=== PATIENT | male | born 1935 | race Caucasian/White ===

== ENCOUNTER 2016-12-20 14:57 | Observation (INO) ==
[2016-12-20] MEDS ORDERED: *HR* Morphine 2 MG/ML SYRINGE IVP PRN (17:57)
[2016-12-20] MEDS ORDERED: Ondansetron 4 MG/2 ML VIAL IVP PRN (17:57)
[2016-12-20] MEDS ORDERED: Naloxone 0.4 MG/ML INJ IVP PRN (17:57)
--- NOTE | 2016-12-20 18:10 | Internal Med History&Physical ---
Date of Encounter: 12/20/16 Time of Encounter: 18:03 Assessment and Plan (1) Chest pain Current visit: Yes Status: Acute as per the history, it sounds more like GERD. he says the protonix made it better however he has significant cardiac risk factors, hence ACS to be r/o. will trend tropx3, EKG has no ischemic changes EKG shows paced rhythm will start on protonix BID and will alos give maalox. will continue his home cardiac meds. on asa and plavix. Qualifiers: Chest pain type: unspecified Qualified Code(s): R07.9 - Chest pain, unspecified (2) CAD (coronary artery disease) Current visit: Yes Status: Acute h/o CABG and stents in 2010. conitnue the plavix, he says he had bleeding that from the dual antiplatelet therapy and thus his aspirin was stopped. will contiue his home cardiac meds. Qualifiers: Coronary Disease-Associated Artery/Lesion type: bypass graft [place] vs. transplanted heart: [place] heart Associated angina: without angina Qualified Code(s): I25.810 - Atherosclerosis of coronary artery bypass graft(s) without angina pectoris (3) HTN (hypertension) Current visit: Yes Status: Acute Qualifiers: Hypertension type: essential hypertension Qualified Code(s): I10 - Essential (primary) hypertension (4) Sleep apnea Current visit: Yes Status: Chronic Qualifiers: Sleep apnea type: unspecified type Qualified Code(s): G47.30 - Sleep apnea , unspecified (5) HLD (hyperlipidemia) Current visit: Yes Status: Chronic Qualifiers: Hyperlipidemia type: unspecified Qualified Code(s): E78.5 - Hyperlipidemia , unspecified Internal Medicine - H&P: HPI Chief complaint: chest pain Admitted From: Home Plans for Post Hospital Care: Home History of present illness: Mr. Hernández is a 81 year old male with PMH of CAD, s/p CABG and stent placement in [facility] in 2010 followed by pacemaker placement now transferred from [facility] for "acid reflux" . Patient states that symptoms are in the mid chest and epigastric area, burning in type, non radiating. denies any nausea or vomiting. He reports he has had them for 6 months. But they have been worse since September since his . He reports he also has heart issues but they too feel like a burning feeling in his chest and sometimes he has difficulty telling the difference between this and the reflux that he has had "for years" In addition he has associated symptoms of shortness of breath and cough which is productive of white mucus. He denies any associated fevers. He has had no hemoptysis. he says that his symptoms are worse when he eats. he says they gave him PPI at [facility] which he says helped. Past Med Surg Social Fam HX - Past Medical History Medical history: arthritis, CHF, coronary artery disease, GERD, hyperlipidemia, hypertension, myocardial infarction Psychiatric history: no psych history - Past Surgical History Surgical History: angioplasty/stent, cholecystectomy, coronary bypass (CABG), orthopedic, other, pacemaker - Social History Smoking Status: Former smoker Alcohol use: rarely Drug use: none - Family History Mother Living Status: Hx Family Cardiac Disorders: Yes (HTN, HLD) Internal Medicine - H&P: Meds Clopidogrel [Plavix] 75 mg PO DAILY 12/20/16 [History] Docusate [Colace] 100 mg PO DAILY 12/20/16 [History] Esomeprazole Magnesium [Nexium] 20 mg PO DAILY 12/20/16 [History] Furosemide [Lasix] 40 mg PO DAILY 12/20/16 [History] HYDROcodone/Acet 5/325 mg [[place] 5-325 mg] 1 tab PO Q6H PRN 12/20/16 [History] Lisinopril [Zestril] 40 mg PO DAILY 12/20/16 [History] Melatonin 3 mg PO HS 12/20/16 [History] Potassium Chloride [Klor-Con 10] 10 meq PO DAILY 12/20/16 [History] Spironolactone [Aldactone] 25 mg PO DAILY 12/20/16 [History] Allergies No Known Allergies Allergy (Verified 12/20/16 11:30) All Systems PM: A 10-system review of systems was performed and is negative for pertinent findings except as documented above in the HPI. - Constitutional Vitals: Temp Pulse Resp BP Pulse Ox 98.1 F 87 16 136/91 96 12/20/16 16:41 12/20/16 16:41 12/20/16 16:41 12/20/16 16:41 12/20/16 16:41 General appearance: Present: A&O X 3, no acute distress Exam: neck- supple chest- b/l clear , no added sounds CVS-s1 and s2, no m/r/g abd-soft, non tender, bs are present ext- no edema neuro- no focal defecits.
[2016-12-20] MEDS: Pantoprazole 40 MG VIAL IVP SCH (18:14)
[2016-12-20] MEDS: Mag Hydrox/Al Hydrox/Simeth 30 ML UDC PO SCH ×2 (20:23→23:24)
[2016-12-20] MEDS ORDERED: Lisinopril 20 MG TABLET PO ONE (21:10)
[2016-12-20] MEDS ORDERED: Furosemide 40 MG TABLET PO ONE (21:12)
[2016-12-20] MEDS: Melatonin 3 MG TABLET PO SCH (21:56)
[2016-12-20] MEDS: *HR* HYDROcodone/Acet 5/325 mg TABLET PO PRN (21:57)
[2016-12-21 00:53] LABS: Basophils % 0.5 %; Eosinophils # 0.1 K/mcL (0.0-0.6); Eosinophils % 1.5 %; Hematocrit 35.3 % (37.5-50.1); Hemoglobin 11.6 g/dL (12.9-16.9); Immature Granulocytes % 0.2 % (0-4); Lymphocytes # 1.6 K/mcL (0.6-4.6); Lymphocytes % 26.3 %; Mean Corpuscular HGB Conc 32.9 g/dL (31.6-35.5); Mean Corpuscular Hemoglobin 29.7 pg (28.0-33.3); Mean Corpuscular Volume 90.5 fL (83.0-100.0); Mean Platelet Volume 11.5 fL (9.4-12.4); Monocytes # 0.5 K/mcL (0.0-1.3); Monocytes % 7.8 %; Neutrophils # 3.8 K/mcL (1.6-8.9); Platelet Count 140 K/mcL (140-400); Red Cell Distribution Width 13.2 % (11.5-14.5); Segmented Neutrophils % 63.7 %
[2016-12-21 01:02] LABS: BUN/Creatinine Ratio 20 (6-26); Blood Urea Nitrogen 18 mg/dL (8-26); Calcium 8.6 mg/dL (8.6-10.8); Carbon Dioxide 27 mEq/L (19-29); Chloride 106 mEq/L (98-109); Glucose 113 mg/dL (70-99); Osmolality,Calculated 291 (280-300); Potassium 3.5 mEq/L (3.5-4.5); Sodium 139 mEq/L (136-145); eGFR For African Americans > 60 (> 60); eGFR For Non-African Americans > 60 (> 60)
[2016-12-21] MEDS: Mag Hydrox/Al Hydrox/Simeth 30 ML UDC PO SCH ×6 (02:30→21:24)
[2016-12-21] MEDS: Pantoprazole 40 MG VIAL IVP SCH ×2 (06:38→17:01)
[2016-12-21] MEDS: *HR* HYDROcodone/Acet 5/325 mg TABLET PO PRN ×2 (06:38→13:08)
[2016-12-21] MEDS: Benzonatate 100 MG CAPSULE PO PRN ×2 (08:27→17:07)
[2016-12-21] MEDS: Furosemide 40 MG TABLET PO SCH (08:28)
[2016-12-21] MEDS: Spironolactone 25 MG TABLET PO SCH (08:28)
[2016-12-21] MEDS: Lisinopril 20 MG TABLET PO SCH (08:28)
--- NOTE | 2016-12-21 11:35 | Cardiology Consult Note ---
Date of Encounter: 12/21/16 Time of Encounter: 11:28 Assessment and Plan (1) Elevated troponin Current Visit: Yes Status: Acute Troponins are borderline elevated, flat and adynamic--0.05, 0.07, 0.07, 0.07. Unclear significance. Do no suspect true ACS since they are flat and adynamic. Significant cardiac hx of CABG and PCI (most recent 2014 at [facility]). Request records. Known ICMP, EF 35-40% on echo 08/2015 at [facility]. Recommend rechecking echo for EF comparison. Further recommendations to follow once echo results. Plavix, Statin, BB, JOSE-I. Reports ASA was stopped due to bleeding on DAPT. (2) Chest pain Current Visit: Yes Status: Acute Currently chest pain free. Reports symptoms similar to prior angina. Mild, flat troponins of unclear significance. Check echo to compare to prior. EF 35-40% 08/2015. Pain relieved with pain meds and PPI. Recommend adding nitrates. Further recommendations to follow echo results. Qualifiers: Chest pain type: unspecified Qualified Code(s): R07.9 - Chest pain, unspecified (3) Chronic systolic (congestive) heart failure Current Visit: Yes Status: Chronic Known EF per [facility] records of 35-40% on echo 08/2015. Euvolemic on exam. Continue PO Lasix. CXR with no acute findings. Continue BB, Jose-I, Aldactone, Lasix. (4) Cardiomyopathy Current Visit: Yes Status: Chronic Known EF 35-40%. Recheck echo. Continue BB, JOSE-I, Lasix, Aldactone. Qualifiers: Cardiomyopathy type: ischemic Qualified Code(s): I25.5 - Ischemic cardiomyopathy (5) CAD (coronary artery disease) Current Visit: Yes Status: Acute h/o CABG and PCI--per [facility] records appears most recent PCI was 2014. Continue Plavix. Reportedly had bleeding with DAPT and ASA was stopped. Continue BB, Statin, JOSE-I. Qualifiers: Coronary Disease-Associated Artery/Lesion type: bypass graft [place] vs. transplanted heart: [place] heart Associated angina: without angina Qualified Code(s): I25.810 - Atherosclerosis of coronary artery bypass graft(s) without angina pectoris (6) Pacemaker Current Visit: Yes Status: Chronic BiV PPM. Follows with Dr. Phillips. Discussion w patient/family: The assessment and plan as outlined above was discussed with the patient and/or family members who expressed understanding and agreement. All questions were answered. Thank you for involving us in the care of your patient. Please call with any questions. I will discuss all the above with Dr. Castillo and make changes as necessary. History of Present Illness Consult date: 12/21/16 Requesting physician: Yumiko Roy Consult reason: elevated troponin, chest pain Chief complaint: chest pain History of present illness: Mr. Hernández is a 81 year old male with PMH of CAD s/p CABG and PCI, chronic systolic CHF, PPM, ARMANDO, HTN, IBS, HLD that presented to [facility] with chest pain/ burning. He reports it has been ongoing for approximately 6 months, worsened with meals and exertion. He states it is relieved with GI meds and pain meds, not relieved by nitro. Denies any radiation of pain. States symptoms are similar to past anginal symptoms. Reports chronic dyspnea. 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 Reviewing outside records scanned in [facility] appears his last [facility] was in 2014, where he received PCI at [facility]. Reports there was a VTach arrest at this time, had dissection at outflow of 2nd stent and was restented. EF on echo 08/2015 at [facility] was 35-40%. Troponins found to be 0.05, 0.07, 0.07, 0.07 and cardiology was consulted. Denies any active chest pain. Past Med Surg Social Fam HX - Past Medical History Medical history: arthritis, cardiomyopathy, CHF, coronary artery disease, GERD, hyperlipidemia, hypertension, myocardial infarction Psychiatric history: no psych history - Past Surgical History Surgical History: angioplasty/stent, cholecystectomy, coronary bypass (CABG), orthopedic, other, pacemaker - Social History Smoking Status: Former smoker Alcohol use: rarely Drug use: none - Family History Mother Living Status: Hx Family Cardiac Disorders: Yes (HTN, HLD) Medications and Allergies Atorvastatin Calcium [Lipitor] 80 mg PO HS 12/20/16 [History] Beclomethasone Diprop 80mcg [Qvar 80 mcg] 1 puff IH BID 12/20/16 [History] Carvedilol [Coreg] 25 mg PO BID 12/20/16 [History] Clopidogrel [Plavix] 75 mg PO DAILY 12/20/16 [History] Docusate [Colace] 100 mg PO DAILY 12/20/16 [History] Esomeprazole Magnesium [Nexium] 20 mg PO DAILY 12/20/16 [History] Furosemide [Lasix] 40 mg PO DAILY PRN 12/20/16 [History] HYDROcodone/Acet 5/325 mg [[place] 5-325 mg] 1 tab PO Q6H PRN 12/20/16 [History] Lisinopril [Zestril] 40 mg PO DAILY 12/20/16 [History] Nitroglycerin [Nitrostat] 0.4 mg SL Q5M PRN 12/20/16 [History] Potassium Chloride [K-Tab ER] 20 meq PO DAILY PRN 12/20/16 [History] Allergies No Known Allergies Allergy (Verified 12/20/16 11:30) All Systems Review: A 10-system review of systems was performed and is negative for pertinent findings except as documented above in the HPI. - Cardiovascular Cardiovascular: as per HPI, chest pain at rest, chest pain with exertion, dyspnea on exertion - Respiratory Respiratory: dyspnea Physical Examination Vital Signs Temp Pulse Resp BP Pulse Ox 12/21/16 07:22 98.0 F 83 16 121/72 95 12/21/16 03:40 98.2 F 56 15 140/49 94 12/21/16 01:01 16 99 12/20/16 23:42 98.3 F 86 16 143/80 96 12/20/16 18:48 98.3 F 84 15 140/77 95 12/20/16 16:41 98.1 F 87 16 136/91 96 Intake and Output 12/20/16 12/21/16 12/21/16 23:59 07:59 15:59 Intake Total 250 / 250 450 / 450 Output Total 125 / 125 200 / 200 Balance 125 / 125 250 / 250 Intake: Oral 250 / 250 450 / 450 Output: Urine 125 / 125 200 / 200 Other: Meal Breakfast Percent of Meal Consumed 100% Weight 78.5 kg 80.739 kg Patient Weight 12/21/16 23:59 Weight 80.739 kg General: Conversant, No Apparent Distress HEENT: Atraumatic, Normocephaly, Mucus Membranes Moist Neck: No JVD, Normal carotid pulses Cardiac: Reg Rate and Rhythm, Normal S1 and S2, No Murmur Lungs: Normal Breath Sounds, No Wheeze, Rales, Rhonchi Neuro: Alert and responsive, No focal deficits noted Abdomen: Soft, Non-Tender Skin: No rashes noted on visualized skin Musculoskeletal: No Chest Wall Tenderness Extremities: No Clubbing, No Cyanosis, No Edema, Normal Pulses Results 12/21/16 00:34 12/21/16 00:34 Lab Results 12/20/16 12/21/16 12/21/16 18:25 00:34 00:34 WBC 6.0 Hgb 11.6 L Hct 35.3 L Plt Count 140 Sodium Potassium Chloride Carbon Dioxide BUN Creatinine Glucose Calcium Troponin I 0.07 H* 0.07 H* 12/21/16 12/21/16 00:34 09:26 WBC Hgb Hct Plt Count Sodium 139 Potassium 3.5 Chloride 106 Carbon Dioxide 27 BUN 18 Creatinine 0.90 Glucose 113 H Calcium 8.6 Troponin I 0.07 H* Short CBC 12/21/16 Range/Units 00:34 WBC 6.0 (4.3-11.1) K/mcL Hgb 11.6 L (12.9-16.9) g/dL Hct 35.3 L (37.5-50.1) % Plt Count 140 (140-400) K/mcL Neutrophils # 3.8 (1.6-8.9) K/mcL BMP 12/21/16 Range/Units 00:34 Sodium 139 (136-145) mEq/L Potassium 3.5 (3.5-4.5) mEq/L Chloride 106 (98-109) mEq/L Carbon Dioxide 27 (19-29) mEq/L BUN 18 (8-26) mg/dL Creatinine 0.90 (0.72-1.25) mg/dL Glucose 113 H (70-99) mg/dL Calcium 8.6 (8.6-10.8) mg/dL Cardiac Enzymes 12/21/16 12/21/16 12/20/16 Range/Units 09:26 00:34 18:25 Troponin I 0.07 H* 0.07 H* 0.07 H* (0-0.03) ng/mL Active Medications Acetaminophen/Hydrocodone Bitart ([place] 5-325 Mg) 1 tab PO Q6HR PRN PRN Reason: mild to moderate pain Stop: 06/21/17 21:09 Last Admin: 12/21/16 06:38 Dose: 1 tab Al Hydrox/Mg Hydrox/Simethicone (Maalox) 30 ml PO Q4H DEMETRIUS PRN Reason: Protocol Stop: 06/21/17 18:31 Last Admin: 12/21/16 10:39 Dose: 30 ml Benzonatate (Tessalon) 100 mg PO TID PRN PRN Reason: Cough Stop: 06/22/17 06:48 Last Admin: 12/21/16 08:27 Dose: 100 mg Clopidogrel Bisulfate (Plavix) 75 mg PO DAILY [facility] Stop: 06/22/17 09:01 Last Admin: 12/21/16 08:28 Dose: 75 mg Docusate Sodium (Colace) 100 mg PO DAILY DEMETRIUS PRN Reason: Protocol Stop: 06/22/17 09:01 Last Admin: 12/21/16 08:28 Dose: 100 mg Furosemide (Lasix) 40 mg PO DAILY [facility] Stop: 06/22/17 09:01 Last Admin: 12/21/16 08:28 Dose: 40 mg Lisinopril (Zestril) 40 mg PO DAILY [facility] Stop: 06/22/17 09:01 Last Admin: 12/21/16 08:28 Dose: 40 mg Melatonin (Melatonin) 3 mg PO HS [facility] Stop: 06/21/17 21:01 Last Admin: 12/20/16 21:56 Dose: Not Given Morphine Sulfate (Morphine Sulfate) 2 mg IVP Q4HR PRN PRN Reason: Severe Pain (7-10) Stop: 06/21/17 17:58 Naloxone HCl (Narcan) 0.4 mg IVP Q2MIN PRN PRN Reason: Opioid Reversal Stop: 06/21/17 17:58 Ondansetron HCl (Zofran) 4 mg IVP Q6HR PRN PRN Reason: Nausea And Vomiting Stop: 06/21/17 17:58 Pantoprazole Sodium (Protonix) 40 mg IVP Q12HR [facility] Stop: 06/21/17 18:01 Last Admin: 12/21/16 06:38 Dose: 40 mg Spironolactone (Aldactone) 25 mg PO DAILY [facility] Stop: 06/22/17 09:01 Last Admin: 12/21/16 08:28 Dose: 25 mg - Imaging and Cardiology Chest Xray: report reviewed Echo: report reviewed - EKG Interpretation EKG results cardiology: personally reviewed (Paced), other (24 hour tele AVG HR 64, paced) Consult Discharge Plan - Plan Referrals: Radha Pierce CNP [Primary Care Provider] -
--- NOTE | 2016-12-21 12:39 | Internal Med Progress Note ---
Date of Encounter: 12/21/16 Time of Encounter: 09:30 - Assessment and plan (1) Chest pain Current Visit: Yes Status: Acute Assessment and plan: The patient currently denies chest pain or shortness of breath. Given his extensive cardiac history and borderline elevated troponin, cardiology brought on board. Echocardiogram pending. Qualifiers: Chest pain type: unspecified Qualified Code(s): R07.9 - Chest pain, unspecified (2) Combined systolic and diastolic heart failure Current Visit: Yes Status: Chronic Assessment and plan: In review of his chart, most recent echocardiogram at [facility] was from 2012 that revealed ejection fraction of 45% with mild diastolic dysfunction. He had an echo in 2014 at [place] which revealed ejection fraction of 35-40%. 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 He is on furosemide at home. Repeat echo pending. Cardiology on board. Qualifiers: Heart failure chronicity: chronic Qualified Code(s): I50.42 - Chronic combined systolic (congestive) and diastolic (congestive) heart failure (3) CAD (coronary artery disease) Current Visit: Yes Status: Chronic Qualifiers: Coronary Disease-Associated Artery/Lesion type: bypass graft [place] vs. transplanted heart: [place] heart Associated angina: without angina Qualified Code(s): I25.810 - Atherosclerosis of coronary artery bypass graft(s) without angina pectoris (4) HTN (hypertension) Current Visit: Yes Status: Chronic Assessment and plan: Uncontrolled upon arrival, now normotensive. At home, he is on furosemide 40 mg daily as needed, lisinopril 40 mg daily, carvedilol 25 mg twice a day. These medications have been continued as well as Imdur has been added. It does not appear as if his home med list is completely up-to-date at this point, we will have it updated KIT. Qualifiers: Hypertension type: essential hypertension Qualified Code(s): I10 - Essential (primary) hypertension (5) Sleep apnea Current Visit: Yes Status: Chronic Assessment and plan: CPAP hs Qualifiers: Sleep apnea type: unspecified type Qualified Code(s): G47.30 - Sleep apnea , unspecified (6) Cardiomyopathy Current Visit: Yes Status: Chronic Qualifiers: Cardiomyopathy type: ischemic Qualified Code(s): I25.5 - Ischemic cardiomyopathy (7) Pacemaker Current Visit: Yes Status: Chronic (8) Elevated troponin Current Visit: Yes Status: Acute Assessment and plan: Adynamic and stable. 0.051, now 0.073. Cardiology on board. Possibly due to accelerated hypertension upon admission. Patient currently denies chest pain or shortness of breath. Cardiology on board. Echocardiogram pending. - Subjective Interval history: Patient seen and examined. On examination, patient is sitting upright in his chair shaving himself. Patient currently denies pain. He states that he is unable to ascertain whether or not his epigastric/chest pain has resolved stating that he has not gotten up to ambulate and has not been active today as he states he does not know whether or not the pain has resolved. He is also concerned about his chronic prostate issues but denies new symptoms. - Constitutional Vitals: Temp Pulse Resp BP Pulse Ox 98.2 F 70 18 186/83 97 12/21/16 11:50 12/21/16 11:50 12/21/16 11:50 12/21/16 11:50 12/21/16 11:50 General appearance: Present: A&O X 3, pleasant, no acute distress, answers questions appropriately - Head Head exam: Present: atraumatic, normocephalic - Eye Eye exam: Present: PERRL, conjuntiva pink, sclera anicteric Pupils: Present: PERRL - Neck Neck exam general surgery: Present: supple, trachea midline. Absent: lymphadenopathy - Respiratory Respiratory exam: Present: CTAB. Absent: accessory muscle use, rales, respiratory distress, rhonchi, wheezes - Cardiovascular Cardiovascular exam: Present: RRR, +S1, +S2. Absent: diastolic murmur, gallop, rubs - GI/Abdominal GI/Abdominal exam: Present: normal bowel sounds, soft, no peritoneal signs. Absent: distended, tenderness - Extremities Exam Extremities exam: Present: warm, radial pulses palpable and symetrical. Absent : calf tenderness, cyanotic, pedal edema - Neurological Exam Neurological exam: Present: alert, CN II-XII intact, oriented X3, no focal deficits, strengths equal and symetr throughout. Absent: pronater drift, facial droop, speech deficit - Skin Skin exam: Present: dry, intact, pallor, warm Internal Medicine: Result - Labs CBC & Chem 7: 12/21/16 00:34 12/21/16 00:34 Labs: Short CBC 12/21/16 Range/Units 00:34 WBC 6.0 (4.3-11.1) K/mcL Hgb 11.6 L (12.9-16.9) g/dL Hct 35.3 L (37.5-50.1) % Plt Count 140 (140-400) K/mcL Neutrophils # 3.8 (1.6-8.9) K/mcL BMP 12/21/16 00:34 Sodium 139 Potassium 3.5 Chloride 106 Carbon Dioxide 27 BUN 18 Creatinine 0.90 Glucose 113 H Calcium 8.6 Cardiac Enzymes 12/20/16 12/21/16 12/21/16 Range/Units 18:25 00:34 09:26 Troponin I 0.07 H* 0.07 H* 0.07 H* (0-0.03) ng/mL Consult Discharge Plan - Plan Referrals: Radha Pierce, HOUSE FATHER [Primary Care Provider] -
[2016-12-21] MEDS: Isosorbide MONOnitrate (24 HR) 30 MG TAB.ER.24H PO SCH (13:02)
--- NOTE | 2016-12-21 16:47 | Electrocardiograph Report ---
[address] [address] Test Date: 2016-12-21 Pat Name: Yunior Hernández Department: 113 Room: 3B24 Gender: M Ambulance Assistant: LETTY : 1935 Requested By: Mihir Dillon Order Number: [id number] Reading MD: Evy Huerta Measurements Intervals [place] Rate: 69 P: 96 VT: 146 QRS: 115 QRSD: 191 T: -84 QT: 450 QTc: 469 Interpretive Statements ELECTRONIC ATRIAL PACEMAKER ELECTRONIC VENTRICULAR PACEMAKER ABNORMAL RHYTHM ECG Electronically Signed On 12-21-2016 16:45:41 EDT by Evy Huerta
[2016-12-21] MEDS: Melatonin 3 MG TABLET PO SCH (21:24)
[2016-12-22] MEDS: *HR* HYDROcodone/Acet 5/325 mg TABLET PO PRN ×4 (00:06→19:38)
[2016-12-22] MEDS: Mag Hydrox/Al Hydrox/Simeth 30 ML UDC PO SCH ×6 (03:06→22:17)
[2016-12-22] MEDS: Benzonatate 100 MG CAPSULE PO PRN ×3 (04:40→19:38)
[2016-12-22 05:21] LABS: Hemoglobin A1C 5.3 %
[2016-12-22] MEDS: Pantoprazole 40 MG VIAL IVP SCH ×2 (06:15→19:38)
[2016-12-22] MEDS: Spironolactone 25 MG TABLET PO SCH (09:08)
[2016-12-22] MEDS: Lisinopril 20 MG TABLET PO SCH (09:09)
[2016-12-22] MEDS: Isosorbide MONOnitrate (24 HR) 30 MG TAB.ER.24H PO SCH (09:09)
[2016-12-22] MEDS: Furosemide 40 MG TABLET PO SCH (09:09)
--- NOTE | 2016-12-22 10:23 | ECHO - Doppler Report ---
Echocardiogram Name: Yunior Hernández Date of Study: 12/21/2016 Date: 1935 Ht: 67.0 in Medical Record#: [id number] Age: 81 Wt: 178.0 lb Gender: Male BSA: 1.92 Order #: [id number] Location: [facility] Room #: 3B24 Reading Physician: Cade Coats DO, DARIEN HOUGH Technician: Ayla Ivy RDCS Ordering Physician: Latrell Zavala CNP Primary Physician: Radha Pierce CNP Indications: Elevated troponin, Chest pain Impressions: LVEF 40%. Asymmeteric hypertrophy of the basal septum. No LVOT obstruction. Segmental left ventricular systolic dysfunction. Atypical septal motion consistent with paced rhythm. Mild left ventricular diastolic dysfunction. Normal right ventricular structure and function. Moderately dilated left atrium. Mild mitral regurgitation. No evidence of pulmonary hypertension. Left Ventricular Wall Motion: Rest Echo Findings The mid inferior, basal inferior, mid inferior lateral and basal inferior lateral farris were akinetic. All other wall segments showed normal motion. Findings: Study Quality * Technically adequate exam. ECG Findings * Sinus rhythm with demand pacing. Left Ventricle * LVEF 40%. * Asymmeteric hypertrophy of the basal septum. No LVOT obstruction. * Segmental left ventricular systolic dysfunction. * Atypical septal motion consistent with paced rhythm. * Mild left ventricular diastolic dysfunction. Right Ventricle * Normal right ventricular structure and function. Left Atrium * Moderately dilated left atrium. Right Atrium * Normal right atrial size. Interatrial Septum * Interatrial septum not well evaluated. Aortic Valve * Moderately thickened aortic valve leaflets. The number of leaflets cannot be determined. * Trace aortic regurgitation. * No aortic stenosis. Mitral Valve * Mildly thickened mitral valve leaflets. * Mild mitral regurgitation. * No mitral stenosis. Tricuspid Valve * Normal tricuspid valve structure and function. * Trace tricuspid regurgitation. * No evidence of pulmonary hypertension. Pulmonic Valve * Normal pulmonic valve structure and function. * No pulmonic regurgitation. Aorta * Normally sized aortic root. Pericardium * There is a trivial pericardial effusion present. IVC * The IVC is not well evaluated. Pulmonary Artery * Normal visualized portions of the main pulmonary artery. History Hypertension Hypercholesteremia Family History of CAD History of CAD/PTCA Myocardial Infarction Coronary Artery Bypass Graft Congestive Heart Failure Pacer/ICD Implant 10/30/2012 a Previous Echo was performed. Measurements: BP: 160/ 70 2D Normal Values RVIDd: 3.23 cm <2.7 cm IVSd: 1.77 cm 0.6 - 1.0 cm LVIDd: 4.96 cm 3.7 - 5.6 cm LVPWd: 1.34 cm 0.6 - 1.1 cm LVIDs: 3.50 cm 1.5 - 3.6 cm AO: 3.00 cm < 4.0 cm LA: 3.90 cm 2.0 - 4.0cm %FS: 29.40 cm >25 % LA volume: 74 Mitral Valve Peak E:.62 m/sec Peak A:1.39 m/sec E/A Ratio:0.4 Peak E' Lat Rigo:7.4 cm/s Peak E' Med Rigo:4.9 cm/s E/E' Lat Ratio:8.3 E/E' Med Ratio:12.6 Aortic Valve AI pressure Half-time: 1327.00 msec Tricuspid Valve TV Regurg Peak Grad: 14.00mmHg TV Regurg Peak Rigo: 1.87m/sec Updated by Cade Coats DO, FACKeo, OSVALDO LEDEZMA on 12/22/2016 10:18:26 AM electronically signed on 12/22/2016 10:18:58 AM with status of Final Wall Motion [place]: 1=Normal, 2=Hypokinesis, 3=Akinesis, 4=Dyskinesis, 5=Aneurysmal, 6=Hyperkinetic, X=Not Visualized (Blank)=Missing
--- NOTE | 2016-12-22 10:40 | Event Note ---
Date of Encounter: 12/22/16 Time of Encounter: 10:38 - Cardiology Event Note Pt had another episode of chest burning this AM. Echo preliminary read by Dr. Castillo--EF appears to be ~25%. Most recent echo we have for review was 08/2015 at [place] and EF was 35-40% at that time. Given recurrent chest pain and decreased EF, recommend LHC for further evaluation. R/B/A discussed. Pt agrees to proceed. LHC later today.
[2016-12-22 11:27] LABS: INR 1.1; Prothrombin Time 12.2 Seconds (9.4-12.1)
--- NOTE | 2016-12-22 12:30 | Pre-Sedation Evaluation ---
Pre-sedation evaluation - Pre-sedation checklist Date of procedure: 12/22/16 Procedure: [facility] Recent Vitals: Last Vital Signs Temp 98.1 F 12/22/16 11:39 Pulse 73 12/22/16 11:39 Resp 16 12/22/16 11:39 BP 106/63 12/22/16 11:39 Pulse Ox 95 12/22/16 11:39 H&P (including ROS) documented in medical record: Yes Previous reaction to sedatives/anesthetics: No Dietary Status: No solid food in preceding 4 hrs and no liquid in preceding 2 hrs Dentition: No loose teeth or bridges ASA Classification *see protocol: CLASS II-Mild systemic disease Plan of Care: Pt appropriate candidate for procedure/moderate/conscious sedation , Risks/benefits of procedure/sedation discussed w/ patient/family
[2016-12-22] MEDS ORDERED: *HR* Heparin 10,000 UNIT/10 ML VIAL ONE (14:30)
[2016-12-22] MEDS ORDERED: Heparin 1,000 UNITS/500 mL NS 500 ML ONE (14:30)
[2016-12-22] MEDS ORDERED: 0.9 % Sodium Chloride 1,000 ML ONE ×2 (14:30→14:54)
[2016-12-22] MEDS ORDERED: *HR* Midazolam HCl 2 MG/2 ML VIAL ONE (15:05)
[2016-12-22] MEDS ORDERED: *HR* FentaNYL (PF) 100 MCG/2 ML VIAL ONE (15:06)
[2016-12-22] MEDS ORDERED: Tirofiban 5 MG/100ML 0 MG/0 ML BAG IV ONE (15:50)
[2016-12-22] MEDS ORDERED: Nitroglycerin 1,000 MCG/10 ML VIAL IV ONE (15:53)
--- NOTE | 2016-12-22 15:58 | Internal Med Progress Note ---
Date of Encounter: 12/22/16 Time of Encounter: 14:00 - Assessment and plan (1) Chest pain Current Visit: Yes Status: Acute Assessment and plan: The patient currently denies chest pain or shortness of breath. Cardiology was brought on board and preliminary read of echocardiogram revealed a decreased ejection fraction and the plan is to proceed with a left heart catheter later today. 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 He had an echo in 2014 at [place] which revealed ejection fraction of 35-40%. 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 He is on furosemide at home. Repeat echo pending. Cardiology on board. Qualifiers: Heart failure chronicity: chronic Qualified Code(s): I50.42 - Chronic combined systolic (congestive) and diastolic (congestive) heart failure (3) CAD (coronary artery disease) Current Visit: Yes Status: Chronic Qualifiers: Coronary Disease-Associated Artery/Lesion type: bypass graft [place] vs. transplanted heart: [place] heart Associated angina: without angina Qualified Code(s): I25.810 - Atherosclerosis of coronary artery bypass graft(s) without angina pectoris (4) HTN (hypertension) Current Visit: Yes Status: Chronic Assessment and plan: Uncontrolled upon arrival, now normotensive. At home, he is on furosemide 40 mg daily as needed, lisinopril 40 mg daily, carvedilol 25 mg twice a day. These medications have been continued as well as Imdur has been added. We will continue to trend and adjust medications as indicated. Qualifiers: Hypertension type: essential hypertension Qualified Code(s): I10 - Essential (primary) hypertension (5) Sleep apnea Current Visit: Yes Status: Chronic Assessment and plan: CPAP hs Qualifiers: Sleep apnea type: unspecified type Qualified Code(s): G47.30 - Sleep apnea , unspecified (6) Cardiomyopathy Current Visit: Yes Status: Chronic Qualifiers: Cardiomyopathy type: ischemic Qualified Code(s): I25.5 - Ischemic cardiomyopathy (7) Pacemaker Current Visit: Yes Status: Chronic (8) Elevated troponin Current Visit: Yes Status: Acute Assessment and plan: Adynamic and stable. 0.051, now 0.073. Cardiology on board- left heart catheter later today. Patient currently denies chest pain or shortness of breath. Echocardiogram pending. - Subjective Interval history: Patient seen and examined. On examination, patient is lying in bed conversing with his family. He currently denies pain stating he just took a pain medicine. He denies concerns or questions regarding his upcoming procedure. - Constitutional Vitals: Temp Pulse Resp BP Pulse Ox 97.6 F 69 16 103/61 97 12/22/16 14:43 12/22/16 14:43 12/22/16 14:43 12/22/16 14:43 12/22/16 14:43 General appearance: Present: A&O X 3, pleasant, no acute distress, answers questions appropriately - Head Head exam: Present: atraumatic, normocephalic - Eye Eye exam: Present: PERRL, conjuntiva pink, sclera anicteric Pupils: Present: PERRL - Neck Neck exam general surgery: Present: supple, trachea midline. Absent: lymphadenopathy - Respiratory Respiratory exam: Present: CTAB. Absent: accessory muscle use, rales, respiratory distress, rhonchi, wheezes - Cardiovascular Cardiovascular exam: Present: RRR, +S1, +S2. Absent: diastolic murmur, gallop, rubs, systolic murmur - GI/Abdominal GI/Abdominal exam: Present: normal bowel sounds, soft, no peritoneal signs. Absent: distended, tenderness - Extremities Exam Extremities exam: Present: warm, radial pulses palpable and symetrical. Absent : calf tenderness, cyanotic, pedal edema - Neurological Exam Neurological exam: Present: alert, CN II-XII intact, oriented X3, no focal deficits, strengths equal and symetr throughout. Absent: pronater drift, facial droop, speech deficit - Skin Skin exam: Present: dry, intact, pallor, warm Internal Medicine: Result - Labs CBC & Chem 7: 12/21/16 00:34 12/21/16 00:34 - ABG Interpretation ABG results: PT/INR, D-dimer PT 12.2 Seconds (9.4-12.1) H 12/22/16 11:15 Consult Discharge Plan - Plan Referrals: Serena Escobar [employer] [Advanced Practice Nurse] - 12/28/16 10:00 am
--- NOTE | 2016-12-22 16:54 | Invasive Diagnostic Lab Proc ---
Name: Yunior Hernández Date of Study: 12/22/2016 Date: 1935 Ht: 66.9in Medical Record#: [id number] Age: 81 Wt: 177.91lb Gender: Male BSA: 1.92 Order #: [id number] BMI: 27.92 Physicians Procedure Physician: Allen Castillo MD, [facility] Referring MD: Referring MD: Staff Name Position Time In Cassandra Frank RN Monitor 03:00 PM [facility], Honey RT (R) Scrub 03:00 PM Mila See RN [employer] Foreman 03:00 PM Indications Indication Non-Stemi Cardiomyopathy Procedures Performed Procedure L HRT ART/GRFT ANGIO Pre-Procedure Checklist Informed consent is complete signed and on chart. H\\T\\P is on chart. ID band is on and ID verified with patient. Patient NPO for procedure The procedure was described for the patient and questions were answered. ECG is on chart. Plan of Care Patient will tolerate the procedure without complications. Adequate level of comfort will be maintained. Hemodynamics will remain stable Patient will recover from procedure without complications. Respiratory function will be maintained. Cardiac rhythm will remain stable. Patient temperature will be maintained. Patient and/or family have verbalized understanding of the procedure. Patient Education Chief Complaint/Reason for Test: Cardiac Cath Developmental Category: Geriatric (65+ years) Developmentally Appropriate for Age: Yes Learning Barriers: None Education Needs: Procedure Education Method: Verbal Information Taught: Cardiac Cath Educational Evaluation: Able to repeat information Intravenous Access Time IV Size Location DC'd Fluid/Drip Rate Units RN 10:53 AM 20g 1 09/08" Patent On Arrival Lt Antecubital Allergies No Known Allergies Vital Signs Time BP (mmHg) HR (bpm) O2 Sat. RR (bpm) LOC 10:53 AM 107 / 66 65 94 % 16 5 = Fully awake and oriented or at pre-proc level 03:08 PM / % 5 = Fully awake and oriented or at pre-proc level 03:08 PM / % 5 = Fully awake and oriented or at pre-proc level 03:27 PM / % 4 = Oriented but drowsy 03:42 PM / % 4 = Oriented but drowsy 03:04 PM 138 / 76 61 95 % 03:09 PM 123 / 85 70 99 % 20 03:14 PM 106 / 64 60 97 % 16 03:19 PM 108 / 58 66 96 % 19 03:24 PM 110 / 59 64 98 % 18 03:29 PM 98 / 58 60 97 % 24 03:34 PM 92 / 67 23 98 % 25 03:39 PM 111 / 66 68 99 % 15 03:44 PM 110 / 59 66 99 % 21 03:49 PM 101 / 61 67 98 % 15 03:54 PM 97 / 71 70 95 % 18 03:59 PM 102 / 66 66 96 % 15 04:04 PM 102 / 61 67 94 % 30 04:09 PM 112 / 76 70 95 % 20 04:14 PM 113 / 77 69 100 % 11 03:57 PM / % 4 = Oriented but drowsy 04:13 PM / % 5 = Fully awake and oriented or at pre-proc level Procedural Medications Time Medication Dose Units Method Given By 03:05 PM Oxygen 2 L/min nasal cannula Cassandra Frank RN 03:13 PM Versed 2 mg Intravenous Mila See RN 03:14 PM Fentanyl 25 mcg Intravenous Mila See RN 03:36 PM Lidocaine 2% 15 ml Subcutaneous Allen Castillo MD, FACC 03:54 PM Heparin 4000 units Intravenous Mila See RN 04:22 PM Plavix 300 mg Orally Mila See RN ASA Classification: CLASS II- Mild systemic disease (i.e. well-controlled diabetes, hypertension, asthma, cigarette smoking) Betsy Score Preprocedure Postprocedure Activity 2- Moves 4 extremities sustained head lift Activity 2- Moves 4 extremities sustained head lift Circulation 2- SBP +/= 20 points of pre-anesthetic level Circulation 2- SBP +/= 20 points of pre-anesthetic level Consciousness 2- Awake and alert oriented x 3 Consciousness 2- Awake and alert oriented x 3 O2 Saturation 2- Able to maintain O2 satruation of 92% on room air O2 Saturation 2- Able to maintain O2 satruation of 92% on room air Respiratory 2- Able to deep breathe and cough well Respiratory 2- Able to deep breathe and cough well Total Score 10 Total Score 10 Contrast Agent: Isovue Diagnostic Contrast: 131 ml Total Contrast: 131 ml Fluoro Dose: 850 mGy Activated Clotting Time Time Seconds to Clot 04:15 PM 212 Procedure Log Time Note Enter By 02:29 PM CathStat 03:00 PM Pt arrived to asset availability leader 2 at 14:59 [email or web address] 03:00 PM Cassandra Frank RN Position: Monitor Time in: 15:00 [email or web address] 03:00 PM Sites, Honey RT (R) Position: Scrub Time in: 15:00 [email or web address] 03:00 PM Mila See RN Position: [employer] Section Foreman Time in: 15:00 [email or web address] 03:00 PM Patient charges- Angio tray pack, Navilyst 3mm J, Pulse Oximetry and ACIST tubing and transducer [email or web address] 03:00 PM IV Supplies used: J loop Angio Cath. [email or web address] 03:01 PM Case Delayed No [email or web address] 03:01 PM Physician arrived 15: [email or web address] 03:01 PM Abe and danny completed [email or web address] 03:01 PM Sign in performed according to hospital policy. [email or web address] 03:01 PM Procedure start 15: [email or web address] 03:03 PM ASA Class CLASS II- Mild systemic disease (i.e. well-controlled diabetes, hypertension, asthma, cigarette smoking) [email or web address] 03:03 PM Case Start 03:03 PM Vitals capture started with the following parameters, Patient=Adult, Interval=5 min, Initial Kewwfdkx=390 mmHg, Deflation Rate=5 mmHg, Cuff placed on Left Arm 03:04 PM HR=61 bpm, OPMN=511/76 mmhg, SpO2=95.0 %, Comment=intermittent pacing 03:05 PM Time: 15:05 Oxygen on at 2 L/min per nasal cannula by Cassandra Frank RN [email or web address] 03:07 PM Hair removed from procedure site in holding area using clippers. Bilateral groin prepped with Chloraprep by Cassandra Frank RN, safety strap applied then patient was draped. Skin intact. [email or web address] 03:08 PM Time: 15:08 Patient comfortable and pain free: Yes [email or web address] 03:08 PM Time: 15:08LOC: 5 = Fully awake and oriented or at pre-proc level [email or web address] 03:09 PM HR=70 bpm, LZPK=581/85 mmhg, SpO2=99.0 %, Resp=20 B/min, Comment=intermittent pacing 03:14 PM Time: 15:13 Versed 2 mg Intravenous Given by Mila See RN [facility] 03:14 PM HR=60 bpm, MZEX=075/64 mmhg, SpO2=97.0 %, Resp=16 B/min, Comment=intermittent pacing 03:14 PM Time: 15:14 Fentanyl 25 mcg Intravenous Given by Mila See RN 03:16 PM Clinical Presentation: Non-STEMI dsp 03:19 PM HR=66 bpm, HXEN=296/58 mmhg, SpO2=96.0 %, Resp=19 B/min, Comment=paced 03:24 PM HR=64 bpm, NEOW=238/59 mmhg, SpO2=98.0 %, Resp=18 B/min, Comment=paced 03:27 PM Time: 15:08LOC: 5 = Fully awake and oriented or at pre-proc level dsp 03:27 PM Time: 15:08 Patient comfortable and pain free: Yes dspell 03:29 PM HR=60 bpm, NIBP=98/58 mmhg, SpO2=97.0 %, Resp=24 B/min, Comment=paced 03:34 PM HR=23 bpm, NIBP=92/67 mmhg, SpO2=98.0 %, Resp=25 B/min, Comment=paced 03:36 PM Time out performed according to hospital policy 03:37 PM Time: 15:36 15 ml Lidocaine 2% to right groin Subcutaneous Given by Allen Castillo MD, [facility] dsp 03:37 PM Access obtained by percutaneous puncture. 5Fr 10cm Terumo [place] sheath placed in right Femoral artery. [id number] 03:37 PM 5Fr FL 4 catheter inserted over the wire [facility] 03:38 PM 0.035 145cm Navilyst 3mmJ wire [id number] 03:38 PM Recorded Pressure: Ao, HR=71, Condition=Condition 1 (Aorta) Ao 129/21/66 03:39 PM LCA angiography performed in multiple views. 03:39 PM Recorded Pressure: Ao, HR=69, Condition=Condition 1 (Aorta) Ao 94/62/77 03:39 PM HR=68 bpm, CISI=740/66 mmhg, SpO2=99 %, Resp=15 B/min 03:40 PM Catheter removed dspell 03:41 PM 5Fr FR 4 catheter inserted over the wire [facility] 03:41 PM RCA angiography performed in multiple views. dsp 03:42 PM Time: 15:27 Patient comfortable and pain free: Yes dspell 03:42 PM Time: 15:27LOC: 4 = Oriented but drowsy dspell 03:44 PM HR=66 bpm, HOHJ=002/59 mmhg, SpO2=99.0 %, Resp=21 B/min, Comment=paced 03:45 PM SVG to the 1st Diagonal angio performed in multiple views. dspellman 03:45 PM SVG to the RPDA angio performed in multiple views. dspellman 03:45 PM SVG to the 1st OM angio performed in multiple views. dspell 03:46 PM 0.035 260cm Navilyst 3mmJ wire [id number] dspellman 03:47 PM 5Fr IM catheter inserted over the wire [id number] dspellman 03:47 PM Left GAURI to the LAD angio performed in multiple views. dspell 03:49 PM HR=67 bpm, YKZS=259/61 mmhg, SpO2=98.0 %, Resp=15 B/min, Comment=paced 03:51 PM 0.035 260cm [place] PixelPiny Hi-Torque wire [id number] dspell 03:51 PM Catheter removed dspell 03:51 PM dspellman 03:52 PM Recorded Pressure: LV, HR=64, Condition=Condition 1 (Left Ventricle) LV 100/4/6 03:52 PM 5Fr Pigtail catheter inserted over the wire [facility] dspell 03:52 PM Catheter selectively placed in left ventricle dspellman 03:53 PM Recorded Pressure: LV, Ao, HR=97, Condition=Condition 1 (Left Ventricle) LV 110/7/23, (Aorta) Ao 112/55/73 03:53 PM Bolus angiogram of left Ventricle complete: 10 ml/sec for a total of 30 mls dspell 03:53 PM Catheter removed dspell 03:54 PM HR=70 bpm, NIBP=97/71 mmhg, SpO2=95.0 %, Resp=18 B/min, Comment=paced 03:54 PM Catheter removed dspell 03:54 PM PCI Status Urgent dspell 03:54 PM PCI Indication: PCI for high risk Non-STEMI or unstable angina dspell 03:55 PM Time: 15:54 Heparin 4000 units Intravenous Given by Mila See RN dspell 03:56 PM PCI lesion in 1st Diagonal. dspellman 03:56 PM 6Fr JR 4 Runway guide catheter was used to cannulate the PCI vessel successfully. reused? No dspellman 03:56 PM .014 PT Graphix 182cm guide wire across target lesion- successful. reused? No dspellman 03:56 PM Inflation device was opened. dspellman 03:56 PM 2.0 mm x 12 mm Emerge Monorail balloon across target lesion- successful. reused? No dspellman 03:57 PM Time: 15:42LOC: 4 = Oriented but drowsy dspellman 03:57 PM Time: 15:42 Patient comfortable and pain free: Yes dspellman 03:59 PM Balloon inflated @ 6 hakeem for 4 seconds dspellman 03:59 PM HR=66 bpm, TUWQ=089/66 mmhg, SpO2=96.0 %, Resp=15 B/min, Comment=paced 03:59 PM Balloon inflated @ 10 hakeem for 11 seconds dspellman 04:00 PM Balloon inflated @ 10 hakeem for 20 seconds dspellman 04:00 PM Balloon inflated @ 10 hakeem for 5 seconds dspellman 04:01 PM Balloon inflated @ 14 hakeem for 4 seconds dspellman 04:01 PM Balloon inflated @ 14 hakeem for 14 seconds dspellman 04:02 PM Balloon catheter removed intact. dspellman 04:03 PM 3.5 mm x 15mm NC Emerge balloon across target lesion- successful. reused? No dspellman 04:03 PM Recorded Pressure: Ao, HR=64, Condition=Condition 1 (Aorta) Ao 83/44/60 04:04 PM Balloon inflated @ 12 hakeem for 5 seconds dspellman 04:04 PM Balloon inflated @ 16 hakeem for 20 seconds dspellman 04:04 PM HR=67 bpm, VHNZ=385/61 mmhg, SpO2=94.0 %, Resp=30 B/min, Comment=paced 04:04 PM Balloon inflated @ 20 hakeem for 16 seconds dspellman 04:05 PM Balloon inflated @ 20 hakeem for 7 seconds dspellman 04:05 PM Balloon inflated @ 20 hakeem for 10 seconds dspellman 04:05 PM Balloon inflated @ 20 hakeem for 15 seconds dspellman 04:06 PM balloon back, contrast injected images obtained dspellman 04:07 PM Balloon catheter removed intact. dspellman 04:07 PM Guide wire removed intact. dspellman 04:07 PM Recorded Pressure: Ao, HR=60, Condition=Condition 1 (Aorta) Ao 113/59/80 04:08 PM Guide catheter removed intact. dspellman 04:08 PM Bolus angiogram of right Femoral complete: 4 ml/sec for a total of 7 mls dspellman 04:09 PM Procedure completed at 16:09 dspellman 04:09 PM HR=70 bpm, JPYL=675/76 mmhg, SpO2=95.0 %, Resp=20 B/min, Comment=paced 04:10 PM Sign out completed: Radiation Dose 849.8 mGy Fluoro Time: 11.9 Isovue 370 - 200ml contrast 131.4 ml given by Allen Castillo MD, FACC. Complications: NoneCardiac Rehab Consult needed: NoConfirmed administered medications: Yes dspellman 04:10 PM Isovue 370 - 200ml,1 Bottle(s) used. dspellman 04:10 PM Sheath left in place to be pulled on floor/holding areaV+Pad dspellman 04:10 PM Post ECG Paced dspellman 04:10 PM Post Blood Pressure 112/76 dspellman 04:11 PM Information taught Cardiac Cath, PCI, and SHEET METAL ASSEMBLER dspellman 04:11 PM Education needs Procedure, Plan of Care, and Responsibilities of Patient in Care dspellman 04:11 PM Learning barriers :None dspellman 04:11 PM Education Methods Verbal dspellman 04:11 PM Education evaluation Able to repeat information dspellman 04:12 PM Family placed in consult room. dspellman 04:12 PM Complications: None dspellman 04:13 PM Time: 15:57 Patient comfortable and pain free: Yes dspellman 04:13 PM Time: 15:57LOC: 4 = Oriented but drowsy dspellman 04:14 PM HR=69 bpm, XXGD=536/77 mmhg, PiY5=368.0 %, Resp=11 B/min, Comment=paced 04:15 PM At 16:15 the ACT was 212 seconds. dspellman 04:16 PM Fluoro Time: 11.9 dspellman 04:16 PM Isovue 370 - 200ml contrast 131.4 ml given by Allen Castillo MD, FACC. dspellman 04:16 PM Radiation Dose 849.80 mGy dspellman 04:17 PM Site status No bleeding/hematoma - Rt Groin as reported by Sites, Honey RT (R) at 16:17 dspellman 04:17 PM Opsite applied dspellman 04:20 PM 16:20 Post Pulses Bilateral DP \\T\\ PT 1+ dspellman 04:21 PM Report given to Jessica SPENCER Pt taken to Room #8. 16:20 dspellman 04:22 PM Time: 16:22 Plavix 300 mg Orally Given by Mila See RN dspellman 04:24 PM Coronary Dominance: right dspellman 04:25 PM Lesion found in Proximal RCA. Pre Stenosis: 90 Pre ANDRIY Flow: dspellman 04:25 PM Lesion found in Mid RCA. Pre Stenosis: 99 Pre ANDRIY Flow: dspellman 04:25 PM Lesion found in Proximal LAD. Pre Stenosis: 90 Pre ANDRIY Flow: dspellman 04:25 PM Proximal Left Anterior Descending Coronary Artery with 90% stenosis. If graft is supplying this territory, 0 % stenosis. dspellman 04:26 PM Mid/Distal Left Anterior Descending Coronary Artery and diagonal branches with 0% stenosis. If graft is supplying this area, 50 % stenosis dspellman 04:26 PM Lesion found in Right PDA. Pre Stenosis: 100 Pre ANDRIY Flow: dspellman 04:27 PM Right Coronary, Right Posterior Descending Arteries with Right Posterolateral and Acute Marginal branches with 0 % stenosis. If graft is supplying this area, 100 % stenosis dspellman 04:27 PM Circumflex, Obtuse Marginal, Left Posterior Descending, and Left Posterolateral Coronary Arteries with 0 % stenosis. If graft is supplying this area, 100 % stenosis dspellman 04:28 PM Time: 16:13LOC: 5 = Fully awake and oriented or at pre-proc level dspellman 04:28 PM Lesion found in Proximal Circumflex. Pre Stenosis: 99 Pre ANDRIY Flow: dspellman 04:31 PM Lesion found in 1st Diagonal. Pre Stenosis: 99 Pre ANDRIY Flow: dspellman Complications Complication None None Hemodynamics Pressures Site Systolic/A Wave Diastolic/V Wave Mean AO 129 21 66 AO 94 62 77 LV 100 4 6 LV 110 7 23 AO 112 55 73 AO 83 44 60 AO 113 59 80 Post Procedure Information Blood Pressure: 112/76 mmHg Rhythm: Paced Post procedural instructions were given Site Checks Time Location Status Staff Sheath In? Note 04:17 PM Rt Groin No bleeding/hematoma Sites, Honey RT (R) Pulses Time Site Pre-Procedure Post-Procedure Note 12/22/2016 10:54:00 AM Bilateral DP 2+ 12/22/2016 10:54:00 AM Bilateral radial 2+ 4:20:00 PM Bilateral DP \\T\\ PT 1+ Updated by Mila See RN on 12/22/2016 4:46:52 PM Galina Whitaker RT electronically signed on 12/22/2016 4:49:16 PM with status of Final
[2016-12-22] MEDS: Melatonin 3 MG TABLET PO SCH (22:17)
[2016-12-23] MEDS: Benzonatate 100 MG CAPSULE PO PRN ×2 (01:41→07:38)
[2016-12-23] MEDS: *HR* HYDROcodone/Acet 5/325 mg TABLET PO PRN ×2 (01:41→07:31)
[2016-12-23] MEDS: Mag Hydrox/Al Hydrox/Simeth 30 ML UDC PO SCH ×3 (02:58→10:17)
[2016-12-23] MEDS: Pantoprazole 40 MG VIAL IVP SCH (05:23)
[2016-12-23] MEDS: Isosorbide MONOnitrate (24 HR) 30 MG TAB.ER.24H PO SCH (07:31)
[2016-12-23] MEDS: Lisinopril 20 MG TABLET PO SCH (07:32)
[2016-12-23] MEDS: Furosemide 40 MG TABLET PO SCH (07:32)
[2016-12-23] MEDS: Spironolactone 25 MG TABLET PO SCH (07:32)
[2016-12-23 09:01] LABS: Basophils % 0.4 %; Eosinophils # 0.1 K/mcL (0.0-0.6); Eosinophils % 1.4 %; Hematocrit 38.9 % (37.5-50.1); Hemoglobin 12.6 g/dL (12.9-16.9); Immature Granulocytes % 0.4 % (0-4); Lymphocytes # 1.3 K/mcL (0.6-4.6); Mean Corpuscular HGB Conc 32.4 g/dL (31.6-35.5); Mean Corpuscular Hemoglobin 29.5 pg (28.0-33.3); Mean Corpuscular Volume 91.1 fL (83.0-100.0); Mean Platelet Volume 11.7 fL (9.4-12.4); Monocytes # 0.5 K/mcL (0.0-1.3); Monocytes % 6.9 %; Neutrophils # 5.7 K/mcL (1.6-8.9); Platelet Count 160 K/mcL (140-400); Red Blood Count 4.27 M/mcL (4.19-5.50); Red Cell Distribution Width 13.3 % (11.5-14.5); Segmented Neutrophils % 73.9 %
[2016-12-23 09:14] LABS: BUN/Creatinine Ratio 18 (6-26); Blood Urea Nitrogen 18 mg/dL (8-26); Calcium 9.2 mg/dL (8.6-10.8); Carbon Dioxide 25 mEq/L (19-29); Chloride 106 mEq/L (98-109); Glucose 121 mg/dL (70-99); Osmolality,Calculated 293 (280-300); Potassium 4.5 mEq/L (3.5-4.5); Sodium 140 mEq/L (136-145); eGFR For African Americans > 60 (> 60); eGFR For Non-African Americans > 60 (> 60)
--- NOTE | 2016-12-23 09:36 | Cardiology Progress Note ---
Date of Encounter: 12/23/16 Time of Encounter: 09:34 Assessment and Plan (1) CAD (coronary artery disease) Current Visit: Yes Status: Chronic h/o CABG and PCI. S/P [facility] yesterday with PTCA to SVG-OM diag. Final cath report pending. Chest pain has resolved. Continue Plavix. Start ASA. Reportedly had bleeding with DAPT and ASA was stopped in the past. Recommend DAPT x 1 week, then ASA can be stopped. Continue BB, Statin, JOSE-I. Right femoral access site with moderate-large amount of ecchymosis. No bleeding or hematoma. H&H, renal function stable. Restrictions discussed. Pt is moving to [place] in 2 weeks. Wishes to find a route supervisor down there to follow-up with. Cardiology signing off. Reconsult PRN. Qualifiers: Coronary Disease-Associated Artery/Lesion type: bypass graft [place] vs. transplanted heart: [place] heart Associated angina: without angina Qualified Code(s): I25.810 - Atherosclerosis of coronary artery bypass graft(s) without angina pectoris (2) Elevated troponin Current Visit: Yes Status: Acute Troponins are borderline elevated, flat and adynamic--0.05, 0.07, 0.07, 0.07. Unclear significance. Do no suspect true ACS since they were flat and adynamic. Significant cardiac hx of CABG and PCI. [facility] yesterday PTCA of SVG- OM diag. Plavix, Statin, BB, JOSE-I. Reports ASA was stopped due to bleeding on DAPT. Recommend DAPT (ASA and Plavix) at least for the next week, then okay to stop ASA. (3) Chest pain Current Visit: Yes Status: Acute Currently chest pain free s/p PTCA. Qualifiers: Chest pain type: unspecified Qualified Code(s): R07.9 - Chest pain, unspecified (4) Chronic systolic (congestive) heart failure Current Visit: Yes Status: Chronic Known EF per [facility] records of 35-40% on echo 08/2015. Euvolemic on exam. Continue PO Lasix. CXR with no acute findings. Echo resulted EF 40%. Continue BB, Jose-I, Aldactone, Lasix. (5) Cardiomyopathy Current Visit: Yes Status: Chronic EF 40%, unchanged from prior. Continue BB, JOSE-I, Lasix, Aldactone. Qualifiers: Cardiomyopathy type: ischemic Qualified Code(s): I25.5 - Ischemic cardiomyopathy (6) Pacemaker Current Visit: Yes Status: Chronic BiV PPM. Discussion w patient/family: The assessment and plan as outlined above was discussed with the patient and/or family members who expressed understanding and agreement. All questions were answered. Thank you for involving us in the care of your patient. Please call with any questions. I will discuss all the above with Dr. Castillo and make changes as necessary. Subjective Principal diagnosis: CAD, S/P PTCA Interval history: Pt had LHC yesterday--PTCA of SVG-OM diag. No stent placement. Final cath report pending. Pt developed hematoma after sheath pull that subsequently resolved with holding pressure. Labs stable this AM. Pt reports feeling better and that his chest burning has subsided. Echo report EF 40%, asymmetric hypertrophy of basal septum. No LVOT obstruction, mild diastolic dysfunction, moderately dilated LA, mild MR. Objective Vital Signs, Last 4 Hours Temp Pulse Resp BP Pulse Ox 12/23/16 07:45 97.6 F 81 18 155/104 92 12/23/16 07:14 97.6 F 81 18 155/104 92 Vital Signs Temp Pulse Resp BP Pulse Ox 12/23/16 07:45 97.6 F 81 18 155/104 92 12/23/16 07:14 97.6 F 81 18 155/104 92 12/23/16 03:51 97.5 F L 87 17 134/90 96 12/23/16 00:30 97.4 F L 79 16 138/84 95 12/23/16 00:00 66 106/67 12/22/16 23:00 68 96/69 12/22/16 21:00 67 92/62 12/22/16 20:30 74 149/105 12/22/16 20:00 70 108/87 12/22/16 19:50 98.4 F 70 16 142/75 95 12/22/16 19:25 79 127/90 12/22/16 19:10 67 13 122/78 95 12/22/16 19:00 69 13 119/87 96 12/22/16 18:54 69 11 131/77 94 12/22/16 18:49 67 12 135/74 95 12/22/16 18:43 62 12 129/76 96 12/22/16 18:39 72 14 145/87 96 12/22/16 18:37 71 13 136/89 96 12/22/16 18:22 69 12 132/80 96 12/22/16 18:16 70 13 123/77 95 12/22/16 18:09 69 13 106/84 94 12/22/16 18:03 74 13 118/78 96 12/22/16 18:01 69 12 145/84 96 12/22/16 17:56 65 12 131/84 96 12/22/16 17:49 63 14 140/89 94 12/22/16 17:45 68 14 121/68 95 12/22/16 17:25 97.4 F L 68 12 114/73 95 12/22/16 17:10 97.6 F 65 12 122/80 95 12/22/16 16:56 71 94 12/22/16 16:55 97.7 F 70 12 122/76 95 12/22/16 16:40 97.8 F 71 13 120/76 95 12/22/16 14:43 97.6 F 69 16 103/61 97 12/22/16 11:39 98.1 F 73 16 106/63 95 Intake and Output 12/22/16 12/23/16 12/23/16 23:59 07:59 15:59 Intake Total 0 / 0 600 / 600 Output Total 150 / 150 785 / 785 Balance -150 / -150 -185 / -185 Intake: Oral 0 / 0 600 / 600 Output: Urine 150 / 150 785 / 785 Other: Meal Dinner Breakfast Percent of Meal Consumed 0% 100% Weight 79.9 kg Patient Weight 12/23/16 23:59 Weight 79.9 kg General: Conversant, No Apparent Distress HEENT: Atraumatic, Normocephaly, Mucus Membranes Moist Neck: No JVD, Normal carotid pulses Cardiac: Reg Rate and Rhythm, Normal S1 and S2, No Murmur Lungs: Normal Breath Sounds, No Wheeze, Rales, Rhonchi Neuro: Alert and responsive, No focal deficits noted Abdomen: Soft, Non-Tender Skin: Other (right femoral access site moderate-large amount of ecchymosis. No bleeding or hematoma.) Musculoskeletal: No Chest Wall Tenderness Extremities: No Clubbing, No Cyanosis, No Edema, Normal Pulses Results 12/23/16 08:46 12/23/16 08:46 Lab Results 12/22/16 12/23/16 12/23/16 11:15 08:46 08:46 WBC 7.7 Hgb 12.6 L Hct 38.9 Plt Count 160 INR 1.1 Sodium 140 Potassium 4.5 D Chloride 106 Carbon Dioxide 25 BUN 18 Creatinine 0.98 Glucose 121 H Calcium 9.2 Short CBC 12/23/16 Range/Units 08:46 WBC 7.7 (4.3-11.1) K/mcL Hgb 12.6 L (12.9-16.9) g/dL Hct 38.9 (37.5-50.1) % Plt Count 160 (140-400) K/mcL Neutrophils # 5.7 (1.6-8.9) K/mcL BMP 12/23/16 Range/Units 08:46 Sodium 140 (136-145) mEq/L Potassium 4.5 D (3.5-4.5) mEq/L Chloride 106 (98-109) mEq/L Carbon Dioxide 25 (19-29) mEq/L BUN 18 (8-26) mg/dL Creatinine 0.98 (0.72-1.25) mg/dL Glucose 121 H (70-99) mg/dL Calcium 9.2 (8.6-10.8) mg/dL Active Medications Acetaminophen/Hydrocodone Bitart ([place]pherd 5-325 Mg) 1 tab PO Q6HR PRN PRN Reason: mild to moderate pain Stop: 06/21/17 21:09 Last Admin: 12/23/16 07:31 Dose: 1 tab Al Hydrox/Mg Hydrox/Simethicone (Maalox) 30 ml PO Q4H DEMETRIUS PRN Reason: Protocol Stop: 06/21/17 18:31 Last Admin: 12/23/16 05:22 Dose: Not Given Benzonatate (Tessalon) 100 mg PO TID PRN PRN Reason: Cough Stop: 06/22/17 06:48 Last Admin: 12/23/16 07:38 Dose: 100 mg Carvedilol (Coreg) 25 mg PO BIDWM DEMETRIUS PRN Reason: Protocol Stop: 06/22/17 17:01 Last Admin: 12/23/16 07:31 Dose: 25 mg Clopidogrel Bisulfate (Plavix) 75 mg PO DAILY [facility] Stop: 06/22/17 09:01 Last Admin: 12/23/16 07:31 Dose: 75 mg Docusate Sodium (Colace) 100 mg PO DAILY [facility] PRN Reason: Protocol Stop: 06/22/17 09:01 Last Admin: 12/23/16 07:31 Dose: 100 mg Furosemide (Lasix) 40 mg PO DAILY [facility] Stop: 06/22/17 09:01 Last Admin: 12/23/16 07:32 Dose: 40 mg Isosorbide Mononitrate (Imdur) 30 mg PO DAILY [facility] Stop: 06/22/17 12:01 Last Admin: 12/23/16 07:31 Dose: 30 mg Lisinopril (Zestril) 40 mg PO DAILY [facility] Stop: 06/22/17 09:01 Last Admin: 12/23/16 07:32 Dose: 40 mg Melatonin (Melatonin) 3 mg PO HS [facility] Stop: 06/21/17 21:01 Last Admin: 12/22/16 22:17 Dose: Not Given Morphine Sulfate (Morphine Sulfate) 2 mg IVP Q4HR PRN PRN Reason: Severe Pain (7-10) Stop: 06/21/17 17:58 Naloxone HCl (Narcan) 0.4 mg IVP Q2MIN PRN PRN Reason: Opioid Reversal Stop: 06/21/17 17:58 Ondansetron HCl (Zofran) 4 mg IVP Q6HR PRN PRN Reason: Nausea And Vomiting Stop: 06/21/17 17:58 Pantoprazole Sodium (Protonix) 40 mg IVP Q12HR [facility] Stop: 06/21/17 18:01 Last Admin: 12/23/16 05:23 Dose: 40 mg Spironolactone (Aldactone) 25 mg PO DAILY [facility] Stop: 06/22/17 09:01 Last Admin: 12/23/16 07:32 Dose: 25 mg - Imaging and Cardiology Echo: report reviewed Cardiac cath: report reviewed - EKG Interpretation EKG results cardiology: other (24 hour tele AVG HR 53, paced.) Consult Discharge Plan - Plan Additional Instructions: RISK FACTORS: STOP SMOKING: If you smoke, STOP. Smoking or tobacco use significantly increases your risk of heart disease because nicotine causes the arteries to narrow or constrict. It also causes fats to stick to the artery. Your chances of having a heart attack are greatly increased if you continue to smoke. For more information, call the education line for smoking cessation 9-561-YOAYDJO EAT A LOW FAT/CHOLESTEROL/SODIUM DIET: This diet may help reduce your chances of having a heart attack. LIFTING: Avoid lifting anything more than 10 pounds for 5-7 days Prior to straining, laughing, sneezing and/or coughing, apply manual pressure directly over insertion site. ACTIVITY: You may walk or climb stairs as tolerated You can resume sexual activity as tolerated In general, you are encouraged to engage in a minimum of 30 minutes or more of moderate intensity physical activity, such as brisk walking, daily or at least 3 -4 times weekly BATHING Do not submerge the site into water (bath tub, hot tub, swimming pool) for 1 week. This can be a source for infection into the blood stream. You may shower after 24 hours SITE CARE: After 24 hours, you may remove the dressing and leave the site open to air. Keep the site clean and dry. Clean gently and pat dry. You can expect bruising and tenderness that gradually resolve within a week or two. Return to work as instructed per your physician Resume driving as instructed per physician Keep all scheduled follow up appointments Resume medications as instructed IMPORTANT: If prescribed a Platelet Aggregation Inhibitor such as, Plavix, Brilinta or Effient: Duration of therapy is minimum one year These medications are often used in combination with Aspirin in prevention of future heart attacks Never discontinue unless consult with your Nuclear Fuels Reclamation Engineer STROKE (CVA) Risk factors for a stroke are: Age, cigarette smoking, diabetes, excessive alcohol consumption, family history, high blood pressure, overweight, physical inactivity, prior stroke, heart attack, diagnosis of carotid artery stenosis or other artery disease. Warning signs: Sudden numbness or weakness of the face, arm or leg; especially on one side of the body, sudden confusion, trouble speaking or understanding, sudden trouble seeing in one or both eyes, sudden trouble walking, dizziness, loss of balance or coordination, sudden severe headache with no cause. Call 911 or go to the Emergency Room. CONGESTIVE HEART FAILURE: If you have been diagnosed with Congestive Heart Failure (CHF) and your symptoms return, make an appointment with your physician Weigh yourself daily. Notify your physician if you have a weight gain of two or more pounds in one day or five or more pounds in one week. If you experience any difficulty breathing, please call 911 BLEEDING: Although the risk of bleeding is minimal, it can happen. If you have any bleeding from the site, apply firm pressure above the puncture site for 10-15 minutes. If the bleeding does not stop, continue manual pressure and call 911 Contact your physician if: You develop a fever greater than 101 degrees Fahrenheit Your site becomes reddened or has any drainage You have an increase in pain or burning at the site or if a large knot forms at the site. If you experience chest pain, shortness of breath, dizziness, or extreme tiredness, stop the activity and rest. Please notify your physicians office if you experience any of these symptoms and they are not relieved by rest please call 911! Referrals: Serena Escobar CNP [Advanced Practice Nurse] - 12/28/16 10:00 am
[2016-12-23] MEDS ORDERED: Aspirin 81 MG TAB.CHEW PO SCH (10:15)
[2016-12-23 11:15] VITALS: BP 111/68
--- NOTE | 2016-12-23 12:09 | Discharge Summary ---
Date of Encounter: 12/23/16 Time of Encounter: 10:00 - Discharge Diagnosis (1) Chest pain Priority: Primary Status: Acute Qualifiers: Chest pain type: precordial pain Qualified Code(s): R07.2 - Precordial pain (2) ARMANDO (obstructive sleep apnea) Priority: Secondary Status: Chronic (3) CAD (coronary artery disease) Priority: Secondary Status: Chronic Qualifiers: Coronary Disease-Associated Artery/Lesion type: bypass graft [place] vs. 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: Secondary Status: Chronic Qualifiers: Heart failure chronicity: chronic Qualified Code(s): I50.42 - Chronic combined systolic (congestive) and diastolic (congestive) heart failure - Discharge Medications Prescriptions: Aspirin 81 mg PO DAILY #7 tab.chew Isosorbide MONOnitrate (24 HR) [Imdur] 30 mg PO DAILY #30 tab.er.24h Home Medications: Atorvastatin Calcium [Lipitor] 80 mg PO HS 12/20/16 [History] Beclomethasone Diprop 80mcg [QVAR 80 mcg] 1 puff IH BID 12/20/16 [History] Carvedilol [Coreg] 25 mg PO BID 12/20/16 [History] Clopidogrel [Plavix] 75 mg PO DAILY 12/20/16 [History] Docusate [Colace] 100 mg PO DAILY 12/20/16 [History] Esomeprazole Magnesium [Nexium] 20 mg PO DAILY 12/20/16 [History] Furosemide [Lasix] 40 mg PO DAILY PRN 12/20/16 [History] HYDROcodone/Acet 5/325 mg [[place] 5-325 mg] 1 tab PO Q6H PRN 12/20/16 [History] Lisinopril [Zestril] 40 mg PO DAILY 12/20/16 [History] Nitroglycerin [Nitrostat] 0.4 mg SL Q5M PRN 12/20/16 [History] Potassium Chloride [K-Tab ER] 20 meq PO DAILY PRN 12/20/16 [History] Aspirin 81 mg PO DAILY #7 tab.chew 12/23/16 [Rx] Isosorbide MONOnitrate (24 HR) [Imdur] 30 mg PO DAILY #30 tab.er.24h 12/23/16 [ Rx] Melatonin 3 mg PO HS tablet 12/23/16 [Rx] Spironolactone [Aldactone] 25 mg PO DAILY tablet 12/23/16 [Rx] Allergies/Adverse Reactions: Allergies No Known Allergies Allergy (Verified 12/20/16 11:30) Procedures/tests Complete & Pending: Procedures Performed prior 72 hours Category Date Time Status CL Cardiac Catheterization [CL] Routine Blow Up Operator 12/22/16 10:40 Ordered ECG 12 lead ECG [ECG] Routine Y 12/22/16 16:15 Ordered EKG [ECG 12 lead ECG] [ECG] Routine Y 12/21/16 01:01 Completed EV echocardiogram Routine Y 12/21/16 11:50 Completed Date of admission: 12/20/16 16:23 Primary care physician: Radha Pierce CNP Consults: 12/20/16 17:12 Consult to [place] [CONS] Routine Reason for SW Consult: discharge planning 12/21/16 08:14 Consult to Cardiology [CONS] Routine Comment: Consulting Provider: Cardiology Jennifer Reason for Consult: extensive cardiac hx here for CP. trop 0.05, 0.07 x2 Call Completed: Yes 12/23/16 08:02 Consult to Cardiac Rehabilitation-Phase1 [CONS] Routine Comment: Reason for Consult: s/p PCI Call Completed: No Discharging clinician: Brook Henry Anticipated date of discharge: 12/23/16 - Patient Status Disposition: Home, Self-Care Condition: Fair Functional capacity at discharge: uses cane/walker Overall status at discharge: patient is progressing back to baseline - Discharge Instructions Instructions: Aspirin (By mouth), Isosorbide Mononitrate (By mouth), Heart Failure (DC), Chest Pain (DC), Pacemaker (DC), Chronic Hypertension (DC) Follow Up With: Serena Escobar CNP [Advanced Practice Nurse] - 12/28/16 10:00 am Yunior Collazo CNP [Advanced Practice Nurse] - 12/28/16 10:00 am Additional Instructions: RISK FACTORS: STOP SMOKING: If you smoke, STOP. Smoking or tobacco use significantly increases your risk of heart disease because nicotine causes the arteries to narrow or constrict. It also causes fats to stick to the artery. Your chances of having a heart attack are greatly increased if you continue to smoke. For more information, call the education line for smoking cessation 5-253-LZYBFKR EAT A LOW FAT/CHOLESTEROL/SODIUM DIET: This diet may help reduce your chances of having a heart attack. LIFTING: Avoid lifting anything more than 10 pounds for 5-7 days Prior to straining, laughing, sneezing and/or coughing, apply manual pressure directly over insertion site. ACTIVITY: You may walk or climb stairs as tolerated You can resume sexual activity as tolerated In general, you are encouraged to engage in a minimum of 30 minutes or more of moderate intensity physical activity, such as brisk walking, daily or at least 3 -4 times weekly BATHING Do not submerge the site into water (bath tub, hot tub, swimming pool) for 1 week. This can be a source for infection into the blood stream. You may shower after 24 hours SITE CARE: After 24 hours, you may remove the dressing and leave the site open to air. Keep the site clean and dry. Clean gently and pat dry. You can expect bruising and tenderness that gradually resolve within a week or two. Return to work as instructed per your physician Resume driving as instructed per physician Keep all scheduled follow up appointments Resume medications as instructed IMPORTANT: If prescribed a Platelet Aggregation Inhibitor such as, Plavix, Brilinta or Effient: Duration of therapy is minimum one year These medications are often used in combination with Aspirin in prevention of future heart attacks Never discontinue unless consult with your Dry Can Tender STROKE (CVA) Risk factors for a stroke are: Age, cigarette smoking, diabetes, excessive alcohol consumption, family history, high blood pressure, overweight, physical inactivity, prior stroke, heart attack, diagnosis of carotid artery stenosis or other artery disease. Warning signs: Sudden numbness or weakness of the face, arm or leg; especially on one side of the body, sudden confusion, trouble speaking or understanding, sudden trouble seeing in one or both eyes, sudden trouble walking, dizziness, loss of balance or coordination, sudden severe headache with no cause. Call 911 or go to the Emergency Room. CONGESTIVE HEART FAILURE: If you have been diagnosed with Congestive Heart Failure (CHF) and your symptoms return, make an appointment with your physician Weigh yourself daily. Notify your physician if you have a weight gain of two or more pounds in one day or five or more pounds in one week. If you experience any difficulty breathing, please call 911 BLEEDING: Although the risk of bleeding is minimal, it can happen. If you have any bleeding from the site, apply firm pressure above the puncture site for 10-15 minutes. If the bleeding does not stop, continue manual pressure and call 911 Contact your physician if: You develop a fever greater than 101 degrees Fahrenheit Your site becomes reddened or has any drainage You have an increase in pain or burning at the site or if a large knot forms at the site. If you experience chest pain, shortness of breath, dizziness, or extreme tiredness, stop the activity and rest. Please notify your physicians office if you experience any of these symptoms and they are not relieved by rest please call 911! - Diet and Activity Activity: other (wear CPAP during sleep) Diet: low fat, low cholesterol, low salt diet Hospital course: Mr. Hernández is a 81 year old male with the above medical problems, admitted with chest pain. Initial EKG and labs done in the emergency room showed no acute abnormality. He was placed on telemetry monitoring, serial troponins showed a slight leak but remained adynamic. Patient continued to have intermittent episodes of chest pain after admission. Echocardiogram was done which showed mild to moderately decreased ejection fraction around 40%, which is his baseline from prior reports. Cardiology was consulted and patient underwent left heart catheterization due to extensive cardiac history and ongoing chest pain, and underwent PTCA to [facility]. He has been on aspirin and Plavix in the past but was taken off aspirin due to epistaxis and GI bleed. He is currently being discharged with aspirin and Plavix for 7 days after which he can stop aspirin and continue Plavix. Patient remained stable after procedure, right femoral catheter site shows significant ecchymosis with no hematoma or bleeding and hemoglobin remained stable. Patient is cleared by cardiology and is medically stable for discharge. He is planning to move to [place] in 2 weeks and would like to seek a new primary care physician and three dimensional art instructor over there. - Time Spent with Patient Total time spent providing and/or coordinating discharge services: Greater than 30 minutes (45 min) - Constitutional Vitals: Temp Pulse Resp BP Pulse Ox 97.5 F L 76 18 111/68 96 12/23/16 11:45 12/23/16 11:45 12/23/16 11:45 12/23/16 11:45 12/23/16 11:45 General appearance: Present: A&O X 3, answers questions appropriately - Respiratory Respiratory exam: Present: CTAB. Absent: accessory muscle use, rales, rhonchi, wheezes - Cardiovascular Cardiovascular exam: Present: RRR, +S1, +S2. Absent: diastolic murmur, gallop, rubs, systolic murmur
--- NOTE | 2016-12-24 14:15 | Invasive Diagnostic Lab ---
Name: Yunior Hernández Date of Study: 12/22/2016 Date: 1935 Ht: 170.0 cm /66.9 in Medical Record#: [id number] Age: 81 Wt: 80.7 kg / 177.91 lb Account/Order#: [id number] Gender: Male BSA: 1.92 Order #: [id number] Fluoro Dose: 850 mGy BMI: 27.92 Procedure Physician: Allen Castillo MD, [facility] Referring MD: Referring MD: Procedures Performed: LEFT HEART CATH W/ GRAFTS PCI of bypass graft Indications: Non-Stemi, Cardiomyopathy Impressions: There is severe three vessel coronary artery disease. There is severe LV Dysfunction EF 20% Patient had successful PTCA in the proximal and mid SVG graft to the Diagonal OM S/P CABG 3 of 5 patent bypass grafts. There is good quality collateral vessel/vessels from the Circumflex to the Right PDA that are visualized. There is a previous stent in the SVG to the 1st Diagonal with severe in-stent stenosis that was intervened on. Recommendations: Optimal medical therapy of patient's disease. Aggressive risk factor modification. History/Risk Factors: arthritis GERD PPM cardiomyopathy stents and CABG in 2010 Hypertension Dyslipidemia Prior ND Previous PCI Previous CABG Procedure Access obtained in the right Femoral artery by percutaneous puncture Patient had successful PTCA in the previous stent in the SVG to the 1st Diagonal. Complications: None, None Contrast: Isovue 131ml Hemodynamics: Pressures Site Systolic/ A Wave Diastolic/ V Wave End Diastolic/ Mean HR AO 129 21 66 71 AO 94 62 77 69 LV 100 4 6 64 LV 110 7 23 116 AO 112 55 73 54 AO 83 44 60 64 AO 113 59 80 60 LV Ventriculography Ejection Method: LV Gram Ejection Fraction: 20% Wall Motion: MCGEE Anterobasal Severe Hypokinesis Anterolateral Severe Hypokinesis Apical: Severe Hypokinesis Inferoapical Severe Hypokinesis Inferobasal Akinesis Coronary Dominance: right Lesion Findings/Interventions * Left Main Coronary Artery The LMCA is angiographically free of disease. * Left Anterior Descending There is a 90% stenosis in the Proximal LAD. There is a 12 mm long, 99% stenosis in the 1st Diagonal. An intervention was performed on the SVG to 1st Diagonal with a final stenosis of 0%. There were no lesion complications. The final ANDRIY flow was 3. * Circumflex There is a 99% stenosis in the Proximal Circumflex. * Right Coronary Artery There is a 90% stenosis in the Proximal RCA. There is a 99% stenosis in the Mid RCA. There is a 100% stenosis in the Right PDA. The lesion has collaterals which feed from left to right. Additional Findings: Grafts * The left internal mammary graft to the Mid LAD is patent. ANDRIY flow is 3. * The saphenous graft to the Right PDA is occluded. * The saphenous vein graft to the 1st Diagonal / OM has a 99% stenosis in the body of the graft (proximal) and 95% (mid). Instent restenosis * An Intervention was performed with final stenosis 0%. ANDRIY 3 flow before and after intervention, no thrombus and no complications. Interventional Device(s) Vessel Segment Type Name Diameter (mm) Length (mm) 1st Diagonal Balloon NC Emerge 3.5 15 1st Diagonal Balloon Emerge Monorail 2 12 Updated by Mila See RN on 12/22/2016 4:46:29 PM Allen Castillo MD, FACC electronically signed on 12/24/2016 2:09:59 PM with status of Final
== END 2016-12-23 13:55 | disposition home or self-care (01) ==
LOC: 3BNU → SUATTDRO 16:23 → 2NNU 12-22 16:07
PROVIDERS: ADMIT Internal Medicine; ATTEND Internal Medicine